=== PATIENT | female | born 1955 | race American Indian/Alaskan Native ===

== ENCOUNTER 2018-07-28 03:03 | Inpatient (IN) | payer MEDICARE, MEDICAID ==
[~2018-07-28] VITALS: Ht 165.1 cm; Wt 79.0 kg
[~2018-07-28 03:03] MED LIST: ACET325T55 PO; GABA-530 PO; LISI40TA4 PO; LOPE-144 PO; MELA3TAB PO; OMEP20TA5 PO; SEVE800T8 PO
--- NOTE | 2018-07-28 03:41 | NUR ---
Patient has several decubitous ulcers on her sacrum and buttock. See paper chart for photos.
[2018-07-28] MEDS ORDERED: albumin 25% 50mL bottle 100 ML IV ONE (03:45)
[2018-07-28] MEDS ORDERED: midodrine 5mg tablet PO ONE (03:45)
[2018-07-28] MEDS ORDERED: normal saline 1000ML IV soln IVB ONE (03:55)
[2018-07-28] MEDS: ALBUMIN 25% IV SCH ×4 (04:04→06:00)
[2018-07-28] MEDS ORDERED: vancomycin/NS 1 GM ADD-VANTAGE 250 ML IV ONE (04:45)
[2018-07-28] MEDS ORDERED: ceftazidime 1000mg in D5W 50ml 50 ML IV ONE (04:45)
--- NOTE | 2018-07-28 04:52 | NUR ---
Patient had BM. Patient cleaned and repositioned.
[2018-07-28] MEDS ORDERED: COU2.5T PO (05:06)
[2018-07-28] MEDS ORDERED: HYDR-4383 PO (05:06)
[2018-07-28] MEDS ORDERED: LISI-642 PO (05:06)
[2018-07-28] MEDS ORDERED: acetaminophen 325mg tablet PO PRN (06:00)
[2018-07-28] MEDS: gabapentin 100mg capsule PO SCH (07:27)
[2018-07-28] MEDS: pantoprazole 40mg Tablet.DR PO SCH (07:27)
[2018-07-28] MEDS: sevelamer carbonate 800mg tablet PO SCH ×3 (07:34→21:51)
[2018-07-28 07:51] LABS: BASOPHILS # (AUTO) 0.1 X10'3 (0-0.2); BASOPHILS % (AUTO) 0.6 % (0-1); EOSINOPHILS # (AUTO) 0.1 X10'3 (0-0.9); EOSINOPHILS % (AUTO) 0.6 % (0-6); HEMATOCRIT 34.1 % (35.0-45.0); HEMOGLOBIN 11.1 g/dl (12.0-16.0); LYMPHOCYTES # (AUTO) 2.7 X10'3 (1.1-4.8); LYMPHOCYTES % (AUTO) 15.8 % (21-51); MEAN CORPUSCULAR HEMOGLOBIN 29.2 PG (27.0-31.0); MEAN CORPUSCULAR HGB CONC 32.5 % (33.0-36.5); MEAN CORPUSCULAR VOLUME 89.7 FL (78-98); MONOCYTES % (AUTO) 6.1 % (2-12); NEUTROPHILS # (AUTO) 12.9 X10'3 (1.8-7.7); NEUTROPHILS % (AUTO) 76.9 % (42-75); PLATELET COUNT 277 X10'3 (140-440); RED CELL DISTRIBUTION WIDTH 18.5 % (11.5-14.5); WHITE BLOOD COUNT 16.8 X10'3 (4.5-11.0)
[2018-07-28 07:54] LABS: ALANINE AMINOTRANSFERASE 17 U/L (12-78); ALBUMIN 1.2 G/DL (3.4-5.0); ALBUMIN/GLOBULIN RATIO 0.3 (1.1-1.5); ALKALINE PHOSPHATASE 226 IU/L (46-116); ANION GAP 14 (8-16); ASPARTATE AMINO TRANSFERASE 31 U/L (10-37); BILIRUBIN,TOTAL 0.5 MG/DL (0.1-1.0); BLOOD UREA NITROGEN 30 MG/DL (7-18); CHLORIDE 104 MMOL/L (99-107); CREATININE 10.09 MG/DL (0.40-0.90); GLUCOSE 116 MG/DL (70-104); MAGNESIUM 1.6 MG/DL (1.5-2.4); PHOSPHORUS 4.8 MG/DL (2.3-4.5); POTASSIUM 3.1 MMOL/L (3.5-5.1); SODIUM 139 MMOL/L (135-145); TOTAL CARBON DIOXIDE 21.4 MMOL/L (24-32); TOTAL PROTEIN 5.7 G/DL (6.4-8.2); eGFR 4 ML/MIN
[2018-07-28 08:07] LABS: PROTHROMBIN TIME 54.7 SECONDS (9.0-12.0)
[2018-07-28 08:08] LABS: INR 5.9 INR
[2018-07-28] MEDS ORDERED: potassium Cl 20 mEq SR tablet PO STA (08:46)
--- NOTE | 2018-07-28 08:46 | NUR ---
Called Dr. Tomlinson regarding patients potassium of 3.1 and possible need for replacement. Dr. Tomlinson stated to place telephone order for 40 mEq potassium PO once now. Will place and administer per MD orders.
[2018-07-28 09:14] LABS: ANISOCYTOSIS 2+; NUCLEATED RED BLOOD CELLS 3 /100WBC (0-0); PLATELET ESTIMATE NORMAL; POLYCHROMASIA FEW; SCHISTOCYTES FEW; TOTAL CELLS COUNTED 100
[2018-07-28 09:16] LABS: HYPOCHROMASIA 1+
--- NOTE | 2018-07-28 09:18 | NUR ---
Patient transfered to a position of comfort on hospital bed. Patient eating breakfast. Will get patient some tea, but no other needs at this time.
--- NOTE | 2018-07-28 13:07 | NUR ---
patient incontinent of stool. patient changed and repositioned for comfort.
--- NOTE | 2018-07-28 15:33 | NUR ---
patient incontinent of stool. patient changed and repositioned for comfort.
--- NOTE | 2018-07-28 16:29 | NUR ---
Report recieved from ER from Miguel ASTORGA
[2018-07-28 17:15] VITALS: BP 95/49
[2018-07-28 18:00] VITALS: BP 95/49
--- NOTE | 2018-07-28 18:25 | NUR ---
Problems reprioritized. Patient report given, questions answered & plan of care reviewed with Mallika ASTORGA .
--- NOTE | 2018-07-28 18:30 | NUR ---
Patient in room PCU 3019. I have received report from Vincent ASTORGA and had the opportunity to ask questions and assume patient care. Patient having peritoneal dialysis connected will assess when able.
[2018-07-28 23:00] VITALS: BP 71/45
[2018-07-29] VITALS (15 sets, daily range): BP systolic 65–90; BP diastolic 22–83
[2018-07-29] MEDS ORDERED: normal saline 500ml IV soln 1,000 ML IV ONE
--- NOTE | 2018-07-29 | NUR ---
Notified Hugo Maher NP of BP of 70/45 manual. Received order for 3%NS but notified him that there is an order to not give hypertonic saline. Received order to give NS 250 ml extra and increase NS to 100 ml/hr. Will continue to monitor.
[2018-07-29] MEDS: ondansetron/PF 4mg/2ml inj IV PRN ×2 (00:33→10:07)
[2018-07-29 05:23] LABS: BASOPHILS % (AUTO) 0.3 % (0-1); EOSINOPHILS # (AUTO) 0.2 X10'3 (0-0.9); EOSINOPHILS % (AUTO) 2.1 % (0-6); HEMATOCRIT 27.7 % (35.0-45.0); HEMOGLOBIN 9.1 g/dl (12.0-16.0); LYMPHOCYTES # (AUTO) 1.6 X10'3 (1.1-4.8); LYMPHOCYTES % (AUTO) 13.4 % (21-51); MEAN CORPUSCULAR HEMOGLOBIN 28.9 PG (27.0-31.0); MEAN CORPUSCULAR HGB CONC 32.7 % (33.0-36.5); MEAN CORPUSCULAR VOLUME 88.4 FL (78-98); MEAN PLATELET VOLUME 7.5 FL (7.4-10.4); MONOCYTES # (AUTO) 0.6 X10'3 (0-0.9); MONOCYTES % (AUTO) 4.8 % (2-12); NEUTROPHILS # (AUTO) 9.5 X10'3 (1.8-7.7); NEUTROPHILS % (AUTO) 79.4 % (42-75); PLATELET COUNT 283 X10'3 (140-440); RED BLOOD COUNT 3.13 X10'6 (4.20-5.60); RED CELL DISTRIBUTION WIDTH 17.5 % (11.5-14.5); WHITE BLOOD COUNT 11.9 X10'3 (4.5-11.0)
[2018-07-29 05:33] LABS: ALANINE AMINOTRANSFERASE 13 U/L (12-78); ALBUMIN 1.6 G/DL (3.4-5.0); ALBUMIN/GLOBULIN RATIO 0.5 (1.1-1.5); ALKALINE PHOSPHATASE 144 IU/L (46-116); ANION GAP 17 (8-16); ASPARTATE AMINO TRANSFERASE 17 U/L (10-37); BILIRUBIN,TOTAL 0.4 MG/DL (0.1-1.0); BLOOD UREA NITROGEN 25 MG/DL (7-18); BUN/CREATININE RATIO 2.9 (6.6-38.0); CALCIUM 7.8 MG/DL (8.5-10.1); CHLORIDE 103 MMOL/L (99-107); CREATININE 8.63 MG/DL (0.40-0.90); GLUCOSE 173 MG/DL (70-104); MAGNESIUM 1.5 MG/DL (1.5-2.4); PHOSPHORUS 3.4 MG/DL (2.3-4.5); SODIUM 138 MMOL/L (135-145); TOTAL CARBON DIOXIDE 18.1 MMOL/L (24-32); TOTAL PROTEIN 4.9 G/DL (6.4-8.2); VANCOMYCIN,RANDOM 16.7 UG/ML; eGFR 5 ML/MIN
[2018-07-29 05:34] LABS: PROTHROMBIN TIME 96.3 SECONDS (9.0-12.0)
[2018-07-29 05:36] LABS: INR > 9.0 INR
--- NOTE | 2018-07-29 05:50 | NUR ---
Notified Hugo Maher NP that the patient's INR is critically high at 10.8, Received orders for Vitamin K 2.5 mg IV and 1 unit FFP. Obtained blood consent from patient and verbal order from Hugo Maher NP. Will continue to monitor patient.
[2018-07-29] MEDS ORDERED: phytonadione inj. 2.5 MG in normal saline 100ml IV soln 99.75 ML IV ONE (06:00)
[2018-07-29] MEDS: VANCOMYCIN LEVEL IV SCH (06:00)
--- NOTE | 2018-07-29 06:10 | NUR ---
Problems reprioritized. Patient report given, questions answered & plan of care reviewed with Mirian ASTORGA. Patient resting eyes closed respirations even.
--- NOTE | 2018-07-29 06:32 | NUR ---
Patient in room PCU 3019. I have received report from Denise ASTORGA and had the opportunity to ask questions and assume patient care. Pt. sleep and doesn't appear to be in distress at this time.
[2018-07-29 06:38] LABS: POTASSIUM 2.7 MMOL/L (3.5-5.1)
[2018-07-29] MEDS: gabapentin 100mg capsule PO SCH (07:23)
[2018-07-29] MEDS: pantoprazole 40mg Tablet.DR PO SCH (07:24)
[2018-07-29] MEDS: sevelamer carbonate 800mg tablet PO SCH ×3 (07:57→17:30)
[2018-07-29] MEDS ORDERED: vancomycin/NS 1 GM ADD-VANTAGE 250 ML IV PRN (08:00)
[2018-07-29] MEDS ORDERED: magnesium Cl slow-release 64mg tablet PO PRN (08:55)
[2018-07-29] MEDS ORDERED: potassium Cl 20 mEq SR tablet PO PRN ×2 (08:55)
--- NOTE | 2018-07-29 15:56 | NUR ---
Initial: Pt admitted with hypovolemia likely r/t volume depletion secondary to poor PO intake per MD notes. Pt with low Yusuf of 11, per physical assessment pt with open skin to bilat buttock, sacrum, and upper back hamstring. Pt seen at bedside given written and verbal protein education with RD contact information. No documented PO intake, pt endorses a low appetite r/t recent loss of younger brother. Pt agreeable to Nepro TID to optimize PO intake while with low appetite and provide additional protein to meet the demands of PD and wound healing, MD kumar, d/w dietary. Pt reports no food allergies, difficulty chewing/swallowing, or constipation/diarrhea. LBM 07/28. Will continue to follow. Recommendations: 1) Continue with regular diet 2) Monitor need for diet change to renal 3) Nepro TID 4) Wt per rx Addendum: 07/29/18 at [address] Amended: Links added.
[2018-07-29] MEDS ORDERED: potassium Cl 20 mEq SR tablet PO SCH (17:30)
--- NOTE | 2018-07-29 19:25 | NUR ---
Pt. did not receive Renvela she is not eating.
--- NOTE | 2018-07-29 22:30 | NUR ---
Spoke with Carito Bills [employer] regarding patients blood pressures, mid 60's to 70's SBP MAP 40-50's. is aware, no new orders at this time
[2018-07-29] MEDS: potassium Cl oral solution 20 MEQ/15 ML PO SCH ×2 (22:47→22:52)
[2018-07-30] MEDS ORDERED: ondansetron 4mg rapidly disintigrating tab PO PRN (01:10)
[2018-07-30 03:00] VITALS: BP 68/39
[2018-07-30] MEDS: VANCOMYCIN LEVEL IV SCH (03:00)
[2018-07-30 06:00] VITALS: BP 80/47
--- NOTE | 2018-07-30 06:20 | NUR ---
Problems reprioritized. Patient report given, questions answered & plan of care reviewed with Mirian ASTORGA.
[2018-07-30 06:23] LABS: BASOPHILS % (AUTO) 0.2 % (0-1); EOSINOPHILS # (AUTO) 0.2 X10'3 (0-0.9); EOSINOPHILS % (AUTO) 2.2 % (0-6); HEMATOCRIT 27.9 % (35.0-45.0); HEMOGLOBIN 9.1 g/dl (12.0-16.0); LYMPHOCYTES # (AUTO) 1.8 X10'3 (1.1-4.8); LYMPHOCYTES % (AUTO) 15.8 % (21-51); MEAN CORPUSCULAR HEMOGLOBIN 28.8 PG (27.0-31.0); MEAN CORPUSCULAR HGB CONC 32.5 % (33.0-36.5); MEAN CORPUSCULAR VOLUME 88.6 FL (78-98); MEAN PLATELET VOLUME 7.8 FL (7.4-10.4); MONOCYTES # (AUTO) 0.6 X10'3 (0-0.9); MONOCYTES % (AUTO) 5.7 % (2-12); NEUTROPHILS # (AUTO) 8.7 X10'3 (1.8-7.7); NEUTROPHILS % (AUTO) 76.1 % (42-75); PLATELET COUNT 273 X10'3 (140-440); RED BLOOD COUNT 3.15 X10'6 (4.20-5.60); RED CELL DISTRIBUTION WIDTH 18.4 % (11.5-14.5); WHITE BLOOD COUNT 11.3 X10'3 (4.5-11.0)
[2018-07-30 06:47] LABS: INR 1.4 INR
[2018-07-30 06:57] LABS: ALANINE AMINOTRANSFERASE 12 U/L (12-78); ALBUMIN 1.6 G/DL (3.4-5.0); ALBUMIN/GLOBULIN RATIO 0.5 (1.1-1.5); ALKALINE PHOSPHATASE 153 IU/L (46-116); ANION GAP 13 (8-16); ASPARTATE AMINO TRANSFERASE 17 U/L (10-37); BILIRUBIN,TOTAL 0.6 MG/DL (0.1-1.0); BLOOD UREA NITROGEN 23 MG/DL (7-18); BUN/CREATININE RATIO 2.9 (6.6-38.0); CALCIUM 8.3 MG/DL (8.5-10.1); CHLORIDE 103 MMOL/L (99-107); CREATININE 7.83 MG/DL (0.40-0.90); GLUCOSE 207 MG/DL (70-104); MAGNESIUM 1.4 MG/DL (1.5-2.4); PHOSPHORUS 2.4 MG/DL (2.3-4.5); SODIUM 137 MMOL/L (135-145); TOTAL CARBON DIOXIDE 21.3 MMOL/L (24-32); TOTAL PROTEIN 5.1 G/DL (6.4-8.2); eGFR 5 ML/MIN
[2018-07-30 07:13] LABS: POTASSIUM 2.9 MMOL/L (3.5-5.1)
[2018-07-30] MEDS: sevelamer carbonate 800mg tablet PO SCH ×3 (07:30→17:54)
[2018-07-30] MEDS: cefTAZidime inj. 1 GM in normal saline 100ml IV soln 100 ML IV SCH (08:00)
[2018-07-30] MEDS ORDERED: potassium Cl oral solution 20 MEQ/15 ML PO ONE (08:50)
[2018-07-30] MEDS: pantoprazole 40mg Tablet.DR PO SCH (09:09)
[2018-07-30] MEDS: gabapentin 100mg capsule PO SCH (09:09)
[2018-07-30] MEDS: potassium Cl oral solution 20 MEQ/15 ML PO SCH ×2 (09:14→21:01)
[2018-07-30 11:00] VITALS: BP 76/45
[2018-07-30] MEDS: HYDROcodone/acetaminophen 5mg/325mg tablet PO PRN (12:12)
[2018-07-30] MEDS: midodrine tablet 2.5 MG TABLET PO SCH (17:52)
[2018-07-30 19:00] VITALS: BP 90/51
[2018-07-30 23:00] VITALS: BP 84/50
[2018-07-31] MEDS: midodrine tablet 2.5 MG TABLET PO SCH ×3 (01:26→18:00)
[2018-07-31 03:00] VITALS: BP 110/66
[2018-07-31] MEDS: VANCOMYCIN LEVEL IV SCH (03:00)
[2018-07-31 06:00] VITALS: BP 110/61
[2018-07-31 06:22] LABS: BASOPHILS % (AUTO) 0.4 % (0-1); EOSINOPHILS # (AUTO) 0.5 X10'3 (0-0.9); EOSINOPHILS % (AUTO) 4.2 % (0-6); HEMATOCRIT 29.2 % (35.0-45.0); HEMOGLOBIN 9.3 g/dl (12.0-16.0); LYMPHOCYTES # (AUTO) 2.2 X10'3 (1.1-4.8); LYMPHOCYTES % (AUTO) 19.9 % (21-51); MEAN CORPUSCULAR HEMOGLOBIN 28.2 PG (27.0-31.0); MEAN CORPUSCULAR VOLUME 88.3 FL (78-98); MEAN PLATELET VOLUME 7.5 FL (7.4-10.4); MONOCYTES # (AUTO) 0.8 X10'3 (0-0.9); MONOCYTES % (AUTO) 6.9 % (2-12); NEUTROPHILS # (AUTO) 7.6 X10'3 (1.8-7.7); NEUTROPHILS % (AUTO) 68.6 % (42-75); PLATELET COUNT 328 X10'3 (140-440); RED BLOOD COUNT 3.31 X10'6 (4.20-5.60); RED CELL DISTRIBUTION WIDTH 18.5 % (11.5-14.5); WHITE BLOOD COUNT 11.1 X10'3 (4.5-11.0)
--- NOTE | 2018-07-31 06:30 | NUR ---
Problems reprioritized. Patient report given, questions answered & plan of care reviewed with RIZWAN Vela.
[2018-07-31 06:36] LABS: INR 1.5 INR; PROTHROMBIN TIME 14.8 SECONDS (9.0-12.0)
[2018-07-31 06:44] LABS: ALANINE AMINOTRANSFERASE 17 U/L (12-78); ALBUMIN 1.5 G/DL (3.4-5.0); ALBUMIN/GLOBULIN RATIO 0.4 (1.1-1.5); ALKALINE PHOSPHATASE 184 IU/L (46-116); ANION GAP 11 (8-16); ASPARTATE AMINO TRANSFERASE 29 U/L (10-37); BILIRUBIN,TOTAL 0.5 MG/DL (0.1-1.0); BLOOD UREA NITROGEN 19 MG/DL (7-18); BUN/CREATININE RATIO 2.6 (6.6-38.0); CALCIUM 8.2 MG/DL (8.5-10.1); CHLORIDE 102 MMOL/L (99-107); GLUCOSE 204 MG/DL (70-104); MAGNESIUM 1.3 MG/DL (1.5-2.4); PHOSPHORUS 1.6 MG/DL (2.3-4.5); POTASSIUM 4.3 MMOL/L (3.5-5.1); SODIUM 135 MMOL/L (135-145); TOTAL CARBON DIOXIDE 22.3 MMOL/L (24-32); TOTAL PROTEIN 5.1 G/DL (6.4-8.2); VANCOMYCIN,RANDOM 14.9 UG/ML; eGFR 6 ML/MIN
[2018-07-31] MEDS: sevelamer carbonate 800mg tablet PO SCH ×3 (07:30→17:30)
[2018-07-31] MEDS ORDERED: vancomycin/NS 1 GM ADD-VANTAGE 250 ML IV ONE (07:45)
[2018-07-31 08:23] LABS: ANISOCYTOSIS 2+; HYPOCHROMASIA 2+; PLATELET ESTIMATE NORMAL
[2018-07-31 08:24] LABS: POLYCHROMASIA 2+; TARGET CELLS FEW
[2018-07-31] MEDS: gabapentin 100mg capsule PO SCH (08:45)
[2018-07-31] MEDS: potassium Cl oral solution 20 MEQ/15 ML PO SCH ×2 (08:52→19:19)
[2018-07-31] MEDS: pantoprazole 40mg Tablet.DR PO SCH (08:54)
[2018-07-31 11:00] VITALS: BP 115/62
[2018-07-31] MEDS: HYDROcodone/acetaminophen 5mg/325mg tablet PO PRN (11:34)
[2018-07-31 15:00] VITALS: BP 106/58
[2018-07-31 19:00] VITALS: BP 91/42
[2018-07-31 23:00] VITALS: BP 120/59
[2018-08-01] MEDS: HYDROcodone/acetaminophen 5mg/325mg tablet PO PRN (00:49)
[2018-08-01] MEDS: midodrine tablet 2.5 MG TABLET PO SCH ×4 (00:49→23:36)
[2018-08-01 03:00] VITALS: BP 117/57
[2018-08-01] MEDS: VANCOMYCIN LEVEL IV SCH (03:00)
[2018-08-01 06:00] VITALS: BP 98/60
--- NOTE | 2018-08-01 06:36 | NUR ---
Problems reprioritized. Patient report given, questions answered & plan of care reviewed with RIZWAN Veronica.
[2018-08-01 06:55] LABS: ALANINE AMINOTRANSFERASE 20 U/L (12-78); ALBUMIN 1.4 G/DL (3.4-5.0); ALBUMIN/GLOBULIN RATIO 0.4 (1.1-1.5); ALKALINE PHOSPHATASE 178 IU/L (46-116); ANION GAP 10 (8-16); ASPARTATE AMINO TRANSFERASE 30 U/L (10-37); BILIRUBIN,TOTAL 0.5 MG/DL (0.1-1.0); BLOOD UREA NITROGEN 22 MG/DL (7-18); BUN/CREATININE RATIO 3.2 (6.6-38.0); CALCIUM 8.3 MG/DL (8.5-10.1); CHLORIDE 103 MMOL/L (99-107); CREATININE 6.98 MG/DL (0.40-0.90); GLUCOSE 177 MG/DL (70-104); MAGNESIUM 1.3 MG/DL (1.5-2.4); PHOSPHORUS 1.5 MG/DL (2.3-4.5); POTASSIUM 4.5 MMOL/L (3.5-5.1); SODIUM 137 MMOL/L (135-145); TOTAL CARBON DIOXIDE 23.7 MMOL/L (24-32); TOTAL PROTEIN 5.1 G/DL (6.4-8.2); VANCOMYCIN,RANDOM 26.1 UG/ML; eGFR 6 ML/MIN
--- NOTE | 2018-08-01 06:55 | NUR ---
Patient in room PCU 3019. I have received report from RIZWAN MUIR and had the opportunity to ask questions and assume patient care.
[2018-08-01 07:08] LABS: BASOPHILS % (AUTO) 0.3 % (0-1); EOSINOPHILS # (AUTO) 0.5 X10'3 (0-0.9); EOSINOPHILS % (AUTO) 4.4 % (0-6); HEMATOCRIT 29.2 % (35.0-45.0); HEMOGLOBIN 9.5 g/dl (12.0-16.0); LYMPHOCYTES # (AUTO) 2.4 X10'3 (1.1-4.8); LYMPHOCYTES % (AUTO) 21.1 % (21-51); MEAN CORPUSCULAR HGB CONC 32.6 % (33.0-36.5); MEAN CORPUSCULAR VOLUME 88.9 FL (78-98); MEAN PLATELET VOLUME 7.8 FL (7.4-10.4); MONOCYTES % (AUTO) 8.5 % (2-12); NEUTROPHILS # (AUTO) 7.6 X10'3 (1.8-7.7); NEUTROPHILS % (AUTO) 65.7 % (42-75); PLATELET COUNT 358 X10'3 (140-440); RED BLOOD COUNT 3.28 X10'6 (4.20-5.60); RED CELL DISTRIBUTION WIDTH 19.4 % (11.5-14.5); WHITE BLOOD COUNT 11.5 X10'3 (4.5-11.0)
[2018-08-01 07:11] LABS: INR 1.3 INR; PROTHROMBIN TIME 13.2 SECONDS (9.0-12.0)
[2018-08-01] MEDS: pantoprazole 40mg Tablet.DR PO SCH (07:52)
[2018-08-01] MEDS: sevelamer carbonate 800mg tablet PO SCH (07:53)
[2018-08-01] MEDS: cefTAZidime inj. 1 GM in normal saline 100ml IV soln 100 ML IV SCH (07:57)
[2018-08-01] MEDS: gabapentin 100mg capsule PO SCH (07:59)
[2018-08-01] MEDS: potassium Cl oral solution 20 MEQ/15 ML PO SCH (08:02)
[2018-08-01 11:00] VITALS: BP 121/69
[2018-08-01] MEDS ORDERED: proCHLORperazine 10 MG/2 ml inj IM ONE (12:05)
[2018-08-01] MEDS ORDERED: HYDROmorphone inj. 0.5 MG/0.5 ML DISP.SYRIN IV ONE (12:05)
[2018-08-01 15:00] VITALS: BP 117/61
--- NOTE | 2018-08-01 18:20 | NUR ---
Problems reprioritized. Patient report given, questions answered & plan of care reviewed with RIZWAN AMBROSIO.
--- NOTE | 2018-08-01 18:30 | NUR ---
Patient in room PCU 3019. I have received report from MARGARITO and had the opportunity to ask questions and assume patient care.
[2018-08-01 19:00] VITALS: BP 119/60
[2018-08-01 23:30] VITALS: BP 87/48
[2018-08-02 03:00] VITALS: BP 97/62
[2018-08-02] MEDS: VANCOMYCIN LEVEL IV SCH (03:00)
[2018-08-02 06:00] VITALS: BP 106/60
[2018-08-02 06:00] LABS: BASOPHILS # (AUTO) 0.1 X10'3 (0-0.2); BASOPHILS % (AUTO) 0.4 % (0-1); EOSINOPHILS # (AUTO) 0.5 X10'3 (0-0.9); EOSINOPHILS % (AUTO) 3.7 % (0-6); HEMATOCRIT 29.4 % (35.0-45.0); HEMOGLOBIN 9.4 g/dl (12.0-16.0); LYMPHOCYTES # (AUTO) 1.9 X10'3 (1.1-4.8); LYMPHOCYTES % (AUTO) 14.5 % (21-51); MEAN CORPUSCULAR HEMOGLOBIN 28.5 PG (27.0-31.0); MEAN CORPUSCULAR VOLUME 89.2 FL (78-98); MEAN PLATELET VOLUME 7.8 FL (7.4-10.4); MONOCYTES # (AUTO) 0.8 X10'3 (0-0.9); MONOCYTES % (AUTO) 6.3 % (2-12); NEUTROPHILS # (AUTO) 9.6 X10'3 (1.8-7.7); NEUTROPHILS % (AUTO) 75.1 % (42-75); PLATELET COUNT 407 X10'3 (140-440); RED CELL DISTRIBUTION WIDTH 20.2 % (11.5-14.5); WHITE BLOOD COUNT 12.9 X10'3 (4.5-11.0)
[2018-08-02 06:17] LABS: INR 1.2 INR; PROTHROMBIN TIME 12.3 SECONDS (9.0-12.0)
[2018-08-02 06:22] LABS: ALANINE AMINOTRANSFERASE 29 U/L (12-78); ALBUMIN 1.4 G/DL (3.4-5.0); ALBUMIN/GLOBULIN RATIO 0.4 (1.1-1.5); ALKALINE PHOSPHATASE 226 IU/L (46-116); ANION GAP 13 (8-16); ASPARTATE AMINO TRANSFERASE 56 U/L (10-37); BILIRUBIN,TOTAL 0.5 MG/DL (0.1-1.0); BLOOD UREA NITROGEN 22 MG/DL (7-18); BUN/CREATININE RATIO 3.5 (6.6-38.0); CALCIUM 8.7 MG/DL (8.5-10.1); CHLORIDE 100 MMOL/L (99-107); CREATININE 6.37 MG/DL (0.40-0.90); GLUCOSE 228 MG/DL (70-104); MAGNESIUM 1.4 MG/DL (1.5-2.4); PHOSPHORUS 1.9 MG/DL (2.3-4.5); POTASSIUM 4.1 MMOL/L (3.5-5.1); SODIUM 137 MMOL/L (135-145); TOTAL CARBON DIOXIDE 24.2 MMOL/L (24-32); TOTAL PROTEIN 5.4 G/DL (6.4-8.2); VANCOMYCIN,RANDOM 25.1 UG/ML; eGFR 7 ML/MIN
--- NOTE | 2018-08-02 06:36 | NUR ---
Problems reprioritized. Patient report given, questions answered & plan of care reviewed with MARGARITO.
[2018-08-02] MEDS: pantoprazole 40mg Tablet.DR PO SCH (06:42)
--- NOTE | 2018-08-02 06:48 | NUR ---
Patient in room PCU 3019. I have received report from ran mahajan and had the opportunity to ask questions and assume patient care.
[2018-08-02] MEDS: midodrine tablet 2.5 MG TABLET PO SCH ×2 (08:30→16:34)
[2018-08-02] MEDS: gabapentin 100mg capsule PO SCH (08:30)
[2018-08-02 11:00] VITALS: BP 118/64
[2018-08-02] MEDS: calcium carbonate 500mg chew tablet PO PRN (11:00)
--- NOTE | 2018-08-02 12:33 | NUR ---
[place] [address]. [address] SCALES NOTIFIED, STATES "DO NOT START THE HYPERGLYCEMIC PROTOCOL".
[2018-08-02] MEDS ORDERED: MIDO5TAB PO (14:27)
[2018-08-02 15:00] VITALS: BP 130/69
[2018-08-02 18:00] VITALS: BP 104/61
--- NOTE | 2018-08-02 18:41 | NUR ---
Problems reprioritized. Patient report given, questions answered & plan of care reviewed with RIZWAN HANDY.
--- NOTE | 2018-08-02 18:55 | NUR ---
Patient in room PCU 3019. I have received report from Jeremías ASTORGA and had the opportunity to ask questions and assume patient care.
[2018-08-02] MEDS: lactobacillus rhamnosus 10,000 MMU CELLS/CAPSULE PO SCH (21:22)
[2018-08-02 22:00] VITALS: BP 113/74
[2018-08-03] MEDS: calcium carbonate 500mg chew tablet PO PRN (00:03)
[2018-08-03] MEDS: midodrine tablet 2.5 MG TABLET PO SCH ×3 (00:16→16:01)
[2018-08-03 02:00] VITALS: BP 105/57
[2018-08-03] MEDS: VANCOMYCIN LEVEL IV SCH (03:00)
[2018-08-03] MEDS: HYDROcodone/acetaminophen 5mg/325mg tablet PO PRN (05:00)
[2018-08-03 06:00] VITALS: BP 93/45
--- NOTE | 2018-08-03 06:14 | NUR ---
Problems reprioritized. Patient report given, questions answered & plan of care reviewed with Jeremías RN.
--- NOTE | 2018-08-03 06:27 | NUR ---
Patient in room PCU 3019. I have received report from ran hamilton and had the opportunity to ask questions and assume patient care.
[2018-08-03] MEDS: pantoprazole 40mg Tablet.DR PO SCH (07:33)
[2018-08-03] MEDS: gabapentin 100mg capsule PO SCH (07:34)
[2018-08-03] MEDS: lactobacillus rhamnosus 10,000 MMU CELLS/CAPSULE PO SCH (07:34)
[2018-08-03] MEDS: cefTAZidime inj. 1 GM in normal saline 100ml IV soln 100 ML IV SCH (07:34)
[2018-08-03 11:00] VITALS: BP 132/66
== END 2018-08-03 16:31 | disposition home or self-care (01) | DRG 314 ==
LOC: EDSEX 03:04 → ER 03:04 → ED HOLD 06:00 → EDBEDREQ 16:11 → PCU 3S 17:23
PROVIDERS: ADMIT Internal Medicine Critical Care Medicine; ATTEND Internal Medicine Critical Care Medicine
PROC: 3E1M39Z Irrigation of Peritoneal Cavity using Dialysate, Percutaneous Approach (ICD-10-PCS; 2018-07-28)
PROC: 30233K1 Transfusion of Nonautologous Frozen Plasma into Peripheral Vein, Percutaneous Approach (ICD-10-PCS; principal; 2018-07-29)
PROC: 3E1M39Z Irrigation of Peritoneal Cavity using Dialysate, Percutaneous Approach (ICD-10-PCS; 2018-07-29)
PROC: 3E1M39Z Irrigation of Peritoneal Cavity using Dialysate, Percutaneous Approach (ICD-10-PCS; 2018-07-30)
PROC: 3E1M39Z Irrigation of Peritoneal Cavity using Dialysate, Percutaneous Approach (ICD-10-PCS; 2018-07-31)
PROC: 3E1M39Z Irrigation of Peritoneal Cavity using Dialysate, Percutaneous Approach (ICD-10-PCS; 2018-08-01)
PROC: 3E1M39Z Irrigation of Peritoneal Cavity using Dialysate, Percutaneous Approach (ICD-10-PCS; 2018-08-02)
DX: I95.9 Hypotension, unspecified (principal); N18.6 End stage renal disease; D68.9 Coagulation defect, unspecified; I12.0 Hypertensive chronic kidney disease with stage 5 chronic kidney disease or end stage renal disease; D72.829 Elevated white blood cell count, unspecified; E11.22 Type 2 diabetes mellitus with diabetic chronic kidney disease; E86.0 Dehydration; E86.1 Hypovolemia; I48.0 Paroxysmal atrial fibrillation; K21.9 Gastro-esophageal reflux disease without esophagitis; R19.7 Diarrhea, unspecified; T45.515A Adverse effect of anticoagulants, initial encounter; F32.9 Major depressive disorder, single episode, unspecified; E87.6 Hypokalemia; N28.9 Disorder of kidney and ureter, unspecified; Z99.2 Dependence on renal dialysis; Z90.49 Acquired absence of other specified parts of digestive tract; Z88.8 Allergy status to other drugs, medicaments and biological substances; Z91.041 Radiographic dye allergy status; Z79.01 Long term (current) use of anticoagulants; Z82.49 Family history of ischemic heart disease and other diseases of the circulatory system; Z83.3 Family history of diabetes mellitus; Y92.89 Other specified places as the place of occurrence of the external cause
CPT/HCPCS: 36415; 80053; 80202; 82948; 83605; 83735; 84100; 84132; 84145; 85025; 85610; 86885; 86900; 86901; 87070; 87324; 87449; 90935; 93005; 96361; 96374; 97110; 97162; 97530; 99285; G0378; J0713; J0780; J1170; J2405; J3370; J3430; J7030; P9047; P9059